=== PATIENT | female | born 1950 | race Asian ===

== ENCOUNTER 2024-10-11 22:49 | Emergency (ER) | payer SELFPAY ==
[~2024-10-11] VITALS: Ht 165.1 cm; Wt 72.0 kg
[2024-10-11 23:25] VITALS: O2SAT 100
[2024-10-11] MEDS: ACETAMINOPHEN 500MG TABLET PO ONE (23:43)
[2024-10-12] MEDS: LIDOCAINE 5% PATCH TOP SCH (00:51)
[2024-10-12] MEDS ORDERED: LIDO700A15 TP (01:24)
[2024-10-12] MEDS ORDERED: NAPR-1176 MT (01:24)
[2024-10-12 01:38] VITALS: BP 155/88; PULSE 80; RESP 16; TEMP 36.4; O2SAT 97
== END 2024-10-12 01:38 | disposition home or self-care (01) ==
LOC: EDSEX 22:49 → ER 22:49
DX: S32.810A Multiple fractures of pelvis with stable disruption of pelvic ring, initial encounter for closed fracture (principal); E11.9 Type 2 diabetes mellitus without complications; I10 Essential (primary) hypertension; Z79.1 Long term (current) use of non-steroidal anti-inflammatories (NSAID); W01.0XXA Fall on same level from slipping, tripping and stumbling without subsequent striking against object, initial encounter; Y93.01 Activity, walking, marching and hiking; Y92.89 Other specified places as the place of occurrence of the external cause; Y99.8 Other external cause status
CPT/HCPCS: 73502; 99283